=== PATIENT | male | born 1990 | race Caucasian/White ===

== ENCOUNTER → 2019-02-15 | Emergency (ER) | payer OTHER ==
[~2019-02-15] VITALS: Ht 182.9 cm; Wt 102.1 kg
== END | disposition home or self-care (01) ==
LOC: ER 20:15
DX: S61.442A Puncture wound with foreign body of left hand, initial encounter (principal); W26.8XXA Contact with other sharp object(s), not elsewhere classified, initial encounter; Y93.89 Activity, other specified; Y92.89 Other specified places as the place of occurrence of the external cause; Y99.8 Other external cause status